=== PATIENT | male | born 1990 | race Caucasian/White ===

== ENCOUNTER → 2024-03-27 | Outpatient (CLI) | payer OTHER ==
[~2024-03-27] MED LIST: Amox Tr-K Clv1 EAC1 PO; Cleocin HCl300 MG PO; INCARCERATION; Percocet 5-3251 EACH PO; VICODIN 5-3001 EACH PO
== END | disposition home or self-care (01) ==
LOC: LAB SHORT 16:55 → LAB 16:55
DX: L02.91 Cutaneous abscess, unspecified (principal)
CPT/HCPCS: 87070; 87075; 87077; 87147; 87186; 87205